=== PATIENT | male | born 1975 | race Caucasian/White ===

== ENCOUNTER 2018-04-23 07:17 | Observation (INO) | payer BC ==
[~2018-04-23] VITALS: Ht 182.9 cm; Wt 85.0 kg
[2018-04-23] VITALS (11 sets, daily range): BP systolic 94–110; BP diastolic 50–68; PULSE 49–71; RESP 15–20; TEMP 97.2–98.5; O2SAT 98–100
[2018-04-23] MEDS ORDERED: ASPIRIN 325 MG TAB PO ONE (07:45)
[2018-04-23] MEDS ORDERED: SODIUM CHLORIDE 0.9% FLUSH 10 ML FLUSH IVF PRN (07:45)
--- NOTE | 2018-04-23 07:46 | PD ---
HPI Chief Complaint: Chest Pain Time Seen by Provider: 07:32 Travel History International Travel<30 days: No Contact w/Intl Traveler<30days: No Traveled to known affect area: No History of Present Illness HPI Patient presents to the emergency department with chest pain. Chest pains described as being intermittent, lasting approximately 1 week, left arm is numb this morning, no chest pain now. Pain is described as being sternal and left- sided, stabbing and dull, he had a heart attack in September and states that the pain started this way, nonradiating, intermittent, 5 minutes in duration, aggravated by standing up and alleviated with rest. He has had shortness of breath with the chest pain, chills but no fever, no sweating, no lower extremity edema, no recent travel, no back pain, no hematuria, resolved right sided abdominal pain. PFSH Past Medical History Hx Anticoagulant Therapy: Yes Cardiovascular Problems: Yes Social History Alcohol Use: Yes (rarely) Tobacco Use: Yes (2PPD) Substance Use: No Allergies-Medications (Allergen,Severity, Reaction): Coded Allergies: No Known Allergies (Verified Allergy, Unknown, 04/23/18) Reported Meds & Prescriptions Reported Meds & Active Scripts Active No Active Prescriptions or Reported Medications Review of Systems Except as stated in HPI: all other systems reviewed are Neg Physical Exam Narrative GENERAL: No acute distress. SKIN: Focused skin assessment warm/dry. HEAD: Atraumatic. Normocephalic. EYES: Ocular muscles intact bilaterally. No scleral icterus. No injection or drainage. ENT: No nasal bleeding or discharge. Mucous membranes pink and moist. NECK: Trachea midline. No JVD. CARDIOVASCULAR: Regular rate and rhythm. No murmur appreciated. Left chest wall tender to palpation. RESPIRATORY: No accessory muscle use. Clear to auscultation. Breath sounds equal bilaterally. GASTROINTESTINAL: Abdomen soft, non-tender, nondistended. Hepatic and splenic margins not palpable. MUSCULOSKELETAL: No obvious deformities. No clubbing. No cyanosis. No edema. NEUROLOGICAL: Awake and alert. No obvious cranial nerve deficits. Motor grossly within normal limits. Normal speech. PSYCHIATRIC: Appropriate mood and affect; insight and judgment normal. Data Data Last Documented VS Vital Signs Date Time Temp Pulse Resp B/P (MAP) Pulse Ox O2 Delivery O2 Flow Rate FiO2 04/23/18 07:50 64 20 110/68 (82) 100 Room Air 04/23/18 07:19 97.2 Orders Orders Electrocardiogram (04/23/18 07:39) B-Type Natriuretic Peptide (04/23/18 07:39) Ckmb (Isoenzyme) Profile (04/23/18 07:39) Complete Blood Count With Diff (04/23/18 07:39) Comprehensive Metabolic Panel (04/23/18 07:39) Magnesium (Mg) (04/23/18 07:39) Prothrombin Time / Inr (Pt) (04/23/18 07:39) Act Partial Throm Time (Ptt) (04/23/18 07:39) Troponin I (04/23/18 07:39) Chest, Single Ap (04/23/18 07:39) Aspirin (Aspirin) (04/23/18 07:45) Sodium Chloride 0.9% Flush (Ns Flush) (04/23/18 07:45) Potassium Chloride (Kcl) (04/23/18 09:00) Admit Order (Ed Use Only) (04/23/18 09:02) Labs Laboratory Tests Test 04/23/18 07:50 White Blood Count 8.5 TH/MM3 Red Blood Count 4.62 MIL/MM3 Hemoglobin 14.6 GM/DL Hematocrit 42.4 % Mean Corpuscular Volume 91.9 FL Mean Corpuscular Hemoglobin 31.5 PG Mean Corpuscular Hemoglobin Concent 34.3 % Red Cell Distribution Width 14.0 % Platelet Count 216 TH/MM3 Mean Platelet Volume 8.1 FL Neutrophils (%) (Auto) 62.9 % Lymphocytes (%) (Auto) 25.4 % Monocytes (%) (Auto) 8.8 % Eosinophils (%) (Auto) 2.2 % Basophils (%) (Auto) 0.7 % Neutrophils # (Auto) 5.3 TH/MM3 Lymphocytes # (Auto) 2.2 TH/MM3 Monocytes # (Auto) 0.7 TH/MM3 Eosinophils # (Auto) 0.2 TH/MM3 Basophils # (Auto) 0.1 TH/MM3 CBC Comment DIFF FINAL Differential Comment Blood Urea Nitrogen 9 MG/DL Creatinine 1.12 MG/DL Random Glucose 90 MG/DL Total Protein 7.0 GM/DL Albumin 4.1 GM/DL Calcium Level 8.6 MG/DL Magnesium Level 1.9 MG/DL Alkaline Phosphatase 77 U/L Aspartate Amino Transf (AST/SGOT) 8 U/L Alanine Aminotransferase (ALT/SGPT) 15 U/L Total Bilirubin 0.5 MG/DL Sodium Level 140 MEQ/L Potassium Level 3.3 MEQ/L Chloride Level 108 MEQ/L Carbon Dioxide Level 23.4 MEQ/L Anion Gap 9 MEQ/L Estimat Glomerular Filtration Rate 72 ML/MIN Total Creatine Kinase 51 U/L Troponin I LESS THAN 0.02 NG/ML B-Type Natriuretic Peptide 65 PG/ML MDM Medical Decision Making Medical Screen Exam Complete: Yes Emergency Medical Condition: Yes Interpretation(s) ECG: Sinus bradycardia at 55, normal intervals with QTC 414, normal axis, T- wave inversion in leads 2/3/aVF Labs: Slight decrease in potassium Last Impressions Chest X-Ray 04/23/18 0739 Signed Impressions: CONCLUSION: Negative for acute process Differential Diagnosis ACS, costochondritis, PE, pulmonary edema, pleural effusion Narrative Course Patient with a known cardiac history presents to the emergency department complaining of chest pain 1 week. Patient placed on a night monitor, IV access obtained, and EKG/chest x-ray/labs/aspirin 325 mg p.o. ordered. 1009: admit for chest pain obs Diagnosis Primary Impression: Chest pain Qualified Codes: R07.9 - Chest pain, unspecified Additional Impression: Hypokalemia Admitting Information Admitting Physician Requests: Observation Scripts No Active Prescriptions or Reported Meds Condition: Stable Lenora Leger MD Apr 23, 2018 07:46
[2018-04-23 08:15] LABS: AUTOMATED NEUTROPHIL # 5.3 TH/MM3 (1.8-7.7); BASOPHIL # 0.1 TH/MM3 (0-0.2); BASOPHIL % 0.7 % (0.0-2.0); EOSINOPHIL # 0.2 TH/MM3 (0-0.4); EOSINOPHIL % 2.2 % (0.0-4.0); HEMATOCRIT 42.4 % (39.0-51.0); HEMOGLOBIN 14.6 GM/DL (13.0-17.0); LYMPH % 25.4 % (9.0-44.0); LYMPHOCYTE # 2.2 TH/MM3 (1.0-4.8); MEAN CELL VOLUME 91.9 FL (80.0-100.0); MEAN CORPUSCULAR HEMOGLOBIN 31.5 PG (27.0-34.0); MEAN CORPUSCULAR HGB CONC 34.3 % (32.0-36.0); MEAN PLATELET VOLUME 8.1 FL (7.0-11.0); MONO % 8.8 % (0.0-8.0); MONOCYTE # 0.7 TH/MM3 (0-0.9); NEUT % 62.9 % (16.0-70.0); PLATELET COUNT 216 TH/MM3 (150-450); RED BLOOD COUNT 4.62 MIL/MM3 (4.50-5.90); WHITE BLOOD COUNT 8.5 TH/MM3 (4.0-11.0)
--- NOTE | 2018-04-23 08:16 | RADRPT ---
EXAM DATE: 04/23/2018 8:04 AM EDT AGE/SEX: 42 years / Male INDICATIONS: Chest pain and left arm numbness and tingling. CLINICAL DATA: This is the patient's initial encounter. Patient reports that signs and symptoms have been present for 3 days and indicates a pain score of 8/10. MEDICAL/SURGICAL HISTORY: . Myocardial infarction. Leaky heart valve. . Heart stents. [place] [facility] [place]. . FINDINGS: A single AP view of the chest demonstrates the lungs to be symmetrically aerated without evidence of mass, infiltrate or effusion. The cardiomediastinal contours are unremarkable. Osseous structures a re intact. CONCLUSION: Negative for acute process Electronically signed by: Arnav Aguirre MD 04/23/2018 8:14 AM EDT
[2018-04-23 08:26] LABS: ALBUMIN 4.1 GM/DL (3.4-5.0); AST (GOT) 8 U/L (15-37); BICARBONATE 23.4 MEQ/L (21.0-32.0); BLOOD UREA NITROGEN 9 MG/DL (7-18); CALCIUM 8.6 MG/DL (8.5-10.1); CHLORIDE 108 MEQ/L (98-107); GLUCOSE,RANDOM 90 MG/DL (74-106); MAGNESIUM 1.9 MG/DL (1.5-2.5); SODIUM (NA) 140 MEQ/L (136-145)
[2018-04-23 08:31] LABS: ALKALINE PHOSPHATASE 77 U/L (45-117); ALT (GPT) 15 U/L (12-78); CREATININE 1.12 MG/DL (0.60-1.30); GLOMERULAR FILTRATION RATE 72 ML/MIN (>89); TOTAL BILIRUBIN ADULT 0.5 MG/DL (0.2-1.0); TROPONIN I LESS THAN 0.02 NG/ML (0.02-0.05)
[2018-04-23] MEDS ORDERED: POTASSIUM CHLORIDE 20 MEQ CONTROLLED RELEASE TAB PO ONE (09:00)
[2018-04-23] MEDS ORDERED: ONDANSETRON ODT 4 MG TAB PO PRN (10:00)
[2018-04-23] MEDS ORDERED: NITROGLYCERIN 0.4 MG SL 25 TABS/BTL SL PRN (10:00)
[2018-04-23] MEDS ORDERED: ACETAMINOPHEN 500 MG CPLT PO PRN (10:00)
[2018-04-23 10:07] LABS: PROTHROMBIN TIME - PATIENT 9.8 SEC (9.8-11.6)
[2018-04-23] MEDS ORDERED: BRIL90TA PO (10:18)
[2018-04-23] MEDS ORDERED: LISI10TA3 PO (10:18)
--- NOTE | 2018-04-23 10:33 | HHI.HP ---
HPI Primary Care Physician PCP [facility] Chief Complaint Chest pain History of Present Illness 42-year-old male with history of coronary artery disease, x cardiac stents and current smoker presents to emergency room for further evaluation of chest pain. Onset this am upon awakening. Left anterior chest characterized as a dull pain. Location left inframammary area. Characterized as a sharp pain. Associated symptoms included dyspnea. Denies nausea, vomiting, or diaphoresis. No no precipitating or relieving factors. Left arm felt numb during episode. Duration lasted minutes. Increased fatigue for the last 3 days. Symptoms remind him prior to MRI September 2017. No current chest discomfort. Review of Systems General: No fatigue, weakness, fever, chills, or recent illness. Has been in his general state of health. HEENT: No LANDON, no vision changes, no nasal congestion or drainage, no dysphasia CV: As stated above. No current chest pain or pressure. Endorses compliance with cardiac medications, never started a statin or beta-drew therapy. RESP: No SOB, cough, wheeze, recurrent URI. GI: No nausea, vomiting, or bowel changes. : No dysuria, urgency, frequency EXT: No lower leg edema, no paraesthesias MS: No discomfort, injury, or change in ROM NEURO: No change in memory, dizziness, difficulty with balance, LOC, or motor/ sensory deficits PSYCH: No anxiety, depression, or suicidal ideation SKIN: No rashes, no concerning lesions Past Family Social History Allergies: Coded Allergies: No Known Allergies (Verified Allergy, Unknown, 04/23/18) Past Medical History Coronary artery disease, 2 cardiac stents, current smoker Reported Medications Reported Meds & Active Scripts Active Reported Lisinopril 10 Mg Tab 10 Mg PO DAILY Brilinta (Ticagrelor) 90 Mg Tab 90 Mg PO BID Active Ordered Medications Current Medications Medications (Trade) Dose Ordered Sig/Liliana Route Start Time Stop Time Status Last Admin (NS Flush) 2 ml UNSCH PRN IVF 04/23/18 07:45 (NS Flush) 2 ml BID IV FLUSH 04/23/18 21:00 (Tylenol) 500 mg Q4H PRN PO 04/23/18 10:00 (Nitrostat Sl) 0.4 mg Q5M PRN SL 04/23/18 10:00 (Aspirin) 325 mg DAILY PO 04/24/18 09:00 (Zofran Odt) 4 mg Q6H PRN PO 04/23/18 10:00 Family History Positive for early onset cardiovascular disease, states all males in his family before age 50 from MIs. Social History Known coronary artery disease. No known hypertension or diabetes. Denies ever being started on statin therapy. Lifelong to pack/daily smoker, since heart attack with decreased smoking to 1 pack daily. Endorses rare alcohol use. Denies any illegal drug use. 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 September 2017. Reports EF of 20%. 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 Physical Exam Vital Signs Vital Signs Date Time Temp Pulse Resp B/P (MAP) Pulse Ox O2 Delivery O2 Flow Rate FiO2 04/23/18 10:31 58 18 102/58 (73) 98 04/23/18 09:26 60 18 98/64 (75) 100 Room Air 04/23/18 07:50 64 20 110/68 (82) 100 Room Air 04/23/18 07:19 97.2 65 20 100 Physical Exam GENERAL: Alert WN, WD, NAD, pleasant, male who appears older than stated age HEAD: NC, AT EYES: Sclera clear, conjunctiva without injection, pupils equal and round ENT: Mucous membranes pink and moist, no nasal discharge or bleeding, poor dentition NECK: Supple, no masses, trachea midline CV: RRR, without murmur, rub, gallop, no JVD, S1-S2 no S3-S4. Chest wall nontender with palpation. RESP: Diminished lungs throughout bilateral, no crackles, wheeze, rhonchi, symmetrical chest rise, nonlabored, able to speak in full sentences ABD: Soft, NT, ND, no masses, positive bowel tones EXT: Pulses +2x4, no dependent edema MS: Normal tone x4 extremities, nontender, no obvious deformities, full range of motion NEURO: CN II through CN XII grossly intact, motor strength 5/5 PSYCH: A+O x3, pleasant affect, appropriate speech, mood, insight and judgment SKIN: Normal turgor, normal texture, no lesions, no rashes, brisk cap refill, even hair distribution Laboratory Laboratory Tests Test 04/23/18 07:50 04/23/18 09:20 White Blood Count 8.5 Red Blood Count 4.62 Hemoglobin 14.6 Hematocrit 42.4 Mean Corpuscular Volume 91.9 Mean Corpuscular Hemoglobin 31.5 Mean Corpuscular Hemoglobin Concent 34.3 Red Cell Distribution Width 14.0 Platelet Count 216 Mean Platelet Volume 8.1 Neutrophils (%) (Auto) 62.9 Lymphocytes (%) (Auto) 25.4 Monocytes (%) (Auto) 8.8 Eosinophils (%) (Auto) 2.2 Basophils (%) (Auto) 0.7 Neutrophils # (Auto) 5.3 Lymphocytes # (Auto) 2.2 Monocytes # (Auto) 0.7 Eosinophils # (Auto) 0.2 Basophils # (Auto) 0.1 CBC Comment DIFF FINAL Differential Comment Blood Urea Nitrogen 9 Creatinine 1.12 Random Glucose 90 Total Protein 7.0 Albumin 4.1 Calcium Level 8.6 Magnesium Level 1.9 Alkaline Phosphatase 77 Aspartate Amino Transf (AST/SGOT) 8 Alanine Aminotransferase (ALT/SGPT) 15 Total Bilirubin 0.5 Sodium Level 140 Potassium Level 3.3 Chloride Level 108 Carbon Dioxide Level 23.4 Anion Gap 9 Estimat Glomerular Filtration Rate 72 Total Creatine Kinase 51 Troponin I LESS THAN 0.02 B-Type Natriuretic Peptide 65 Prothrombin Time 9.8 Prothromb Time International Ratio 1.0 Activated Partial Thromboplast Time 23.9 Result Diagram: 04/23/18 0750 04/23/18 0750 Imaging Last 48 hours Impressions Chest X-Ray 04/23/18 7326 Signed Impressions: CONCLUSION: Negative for acute process Course EKG Normal sinus bradycardia, T-wave inversions inferiorly Caprini VTE Risk Assessment Caprini VTE Risk Assessment: No/Low Risk (score <= 1) Caprini Risk Assessment Model Point Value = 1 Point Value = 2 Point Value = 3 Point Value = 5 Age 41-60 Minor surgery BMI > 25 kg/m2 Swollen legs Varicose veins or History of unexplained or recurrent spontaneous Oral contraceptives or hormone replacement Sepsis (< 1 month) Serious lung disease, including pneumonia (< 1 month) Abnormal pulmonary function Acute myocardial infarction Congestive heart failure (< 1 month) History of inflammatory bowel disease Medical patient at bed rest Age 61-74 Arthroscopic surgery Major open surgery (> 45 min) Laparoscopic surgery (> 45 min) Malignancy Confined to bed (> 72 hours) Immobilizing plaster cast Central venous access Age >= 75 History of VTE Family history of VTE Factor V Leiden Prothrombin [id number] Lupus anticoagulant Anticardiolipin antibodies Elevated serum homocysteine Heparin-induced thrombocytopenia Other congenital or acquired thrombophilia Stroke (< 1 month) Elective arthroplasty Hip, pelvis, or leg fracture Acute spinal cord injury (< 1 month) Prophylaxis Regimen Total Risk Factor Score Risk Level Prophylaxis Regimen 0-1 Low Early ambulation 2 Moderate Order ONE of the following: *Sequential Compression Device (SCD) *Heparin 5000 units SQ BID 3-4 Higher Order ONE of the following medications: *Heparin 5000 units SQ TID *Enoxaparin/Lovenox 40 mg SQ daily (WT < 150 kg, CrCl > 30 mL/min) *Enoxaparin/Lovenox 30 mg SQ daily (WT < 150 kg, CrCl > 10-29 mL/min) *Enoxaparin/Lovenox 30 mg SQ BID (WT < 150 kg, CrCl > 30 mL/min) AND/OR *Sequential Compression Device (SCD) 5 or more Highest Order ONE of the following medications: *Heparin 5000 units SQ TID (Preferred with Epidurals) *Enoxaparin/Lovenox 40 mg SQ daily (WT < 150 kg, CrCl > 30 mL/min) *Enoxaparin/Lovenox 30 mg SQ daily (WT < 150 kg, CrCl > 10-29 mL/min) *Enoxaparin/Lovenox 30 mg SQ BID (WT < 150 kg, CrCl > 30 mL/min) AND *Sequential Compression Device (SCD) Assessment and Plan Assessment and Plan #1 Chest pain-admitted to chest pain center. Rule out ACS with 3 sets of EKGs and cardiac enzymes. No previous EKG to compare T-wave inversions inferiorly and anterolaterally. Monitor telemetry overnight. If rules out exercise stress test in a.m. Obtain fasting lipid panel. Discussed importance of statin therapy with no coronary artery disease. Plans to start low-dose atorvastatin prior to discharge. Obtain medical records from recent cardiac catheterization with intervention September 2017. Discussed plan of care with RN. #2 Reduced EF per report-continue MORGAN inhibitor, patient bradycardic, suspect this is reason he is not on beta drew therapy. Karishma Hammond Apr 23, 2018 10:33
[2018-04-23 11:32] LABS: CHOLESTEROL/ HDL RATIO 5.29 RATIO; HDL CHOLESTEROL 33.4 MG/DL (40.0-60.0)
[2018-04-23] MEDS: ATORVASTATIN 10 MG TAB PO SCH (11:45)
[2018-04-23 12:19] LABS: TROPONIN I LESS THAN 0.02 NG/ML (0.02-0.05)
[2018-04-23 15:00] LABS: TROPONIN I LESS THAN 0.02 NG/ML (0.02-0.05)
[2018-04-23] MEDS ORDERED: TICAGRELOR 90 MG TAB PO SCH (21:30)
[2018-04-23] MEDS: SODIUM CHLORIDE 0.9% FLUSH 10 ML FLUSH IV FLUSH SCH (21:44)
--- NOTE | 2018-04-23 22:56 | EKG ---
Date Performed: 04/23/2018 Time Performed: 07:36:27 PTAGE: 42 years EKG: SINUS BRADYCARDIA WITH SINUS ARRHYTHMIA INFERIOR MYOCARDIAL INFARCTION ABNORMAL ECG NO PREVIOUS TRACING DOCTOR: Philip Argueta Interpretating Date/Time 04/23/2018 22:52:22
[2018-04-24 03:30] VITALS: PULSE 41
[2018-04-24 03:58] VITALS: BP 101/56; PULSE 42; RESP 16; TEMP 98.2; O2SAT 99
[2018-04-24 07:26] VITALS: PULSE 46
[2018-04-24 08:24] VITALS: BP 118/60; PULSE 53; RESP 18; TEMP 97.7; O2SAT 100
[2018-04-24] MEDS ORDERED: LISINOPRIL 10 MG TAB PO SCH (09:00)
[2018-04-24] MEDS ORDERED: ASPIRIN 325 MG TAB PO SCH (09:00)
[2018-04-24] MEDS: ATORVASTATIN 10 MG TAB PO SCH (09:05)
[2018-04-24] MEDS: SODIUM CHLORIDE 0.9% FLUSH 10 ML FLUSH IV FLUSH SCH (09:06)
--- NOTE | 2018-04-24 09:16 | EKG ---
Date Performed: 04/23/2018 Time Performed: 11:40:57 PTAGE: 42 years EKG: SINUS BRADYCARDIA WITH OCCASIONAL VENTRICULAR PREMATURE COMPLEXES INFERIOR MYOCARDIAL INFAR CTION ABNORMAL ECG Since PREVIOUS TRACING , no significant change noted DOCTOR: Brandie Booker Interpretating Date/Time 04/24/2018 09:15:05
--- NOTE | 2018-04-24 09:17 | EKG ---
Date Performed: 04/23/2018 Time Performed: 14:29:37 PTAGE: 42 years EKG: SINUS BRADYCARDIA INFERIOR MYOCARDIAL INFARCTION ABNORMAL ECG Since PREVIOUS TRACING , no significant change noted PREVIOUS TRACIN04/23/2018 07.36 DOCTOR: Brandie Booker Interpretating Date/Time 04/24/2018 09:16:08
--- NOTE | 2018-04-24 09:39 | PD.CARD.PN ---
Objective Medications Current Medications Medications (Trade) Dose Ordered Sig/Liliana Route Start Time Stop Time Status Last Admin (NS Flush) 2 ml UNSCH PRN IVF 04/23/18 07:45 (NS Flush) 2 ml BID IV FLUSH 04/23/18 21:00 04/24/18 09:06 (Tylenol) 500 mg Q4H PRN PO 04/23/18 10:00 (Nitrostat Sl) 0.4 mg Q5M PRN SL 04/23/18 10:00 (Aspirin) 325 mg DAILY PO 04/24/18 09:00 04/24/18 09:05 (Zofran Odt) 4 mg Q6H PRN PO 04/23/18 10:00 (Lipitor) 10 mg DAILY PO 04/23/18 11:45 04/24/18 09:05 (Brilinta) 90 mg BID PO 04/23/18 21:30 Future Hold 04/23/18 21:44 (Prinivil) 10 mg DAILY PO 04/24/18 09:00 04/24/18 09:05 Vital Signs / I&O Vital Signs Date Time Temp Pulse Resp B/P (MAP) Pulse Ox O2 Delivery O2 Flow Rate FiO2 04/24/18 08:24 97.7 53 18 118/60 (79) 100 04/24/18 07:26 46 04/24/18 03:58 98.2 42 16 101/56 (71) 99 04/24/18 03:30 41 04/23/18 23:19 98.5 49 16 94/50 (65) 99 04/23/18 20:00 99 04/23/18 19:56 51 16 106/62 (77) 99 04/23/18 18:31 98.0 54 18 103/58 (73) 99 04/23/18 15:28 71 04/23/18 12:50 52 04/23/18 11:56 98.0 52 15 100/63 (75) 98 04/23/18 10:31 58 18 102/58 (73) 98 Laboratory Laboratory Tests Test 04/23/18 11:20 04/23/18 14:15 Total Creatine Kinase 50 U/L 28 U/L Troponin I LESS THAN 0.02 NG/ML LESS THAN 0.02 NG/ML Assessment and Plan Assessment and Plan #1 Chest pain-admitted to chest pain center. Rule out ACS with 3 sets of EKGs and cardiac enzymes. No previous EKG to compare T-wave inversions inferiorly and anterolaterally. Monitor telemetry overnight. If rules out exercise stress test in a.m. Obtain fasting lipid panel. Discussed importance of statin therapy with no coronary artery disease. Plans to start low-dose atorvastatin prior to discharge. Obtain medical records from recent cardiac catheterization with intervention September 2017. Discussed plan of care with RN. #2 Reduced EF per report-continue MORGAN inhibitor, patient bradycardic, suspect this is reason he is not on beta drew therapy. Call out to Karishma Snell Apr 24, 2018 09:38
[2018-04-24 12:11] VITALS: BP 100/58; PULSE 48; RESP 18; TEMP 97.5; O2SAT 98
--- NOTE | 2018-04-24 12:12 | PD.CARD.PN ---
Subjective Subjective Remarks "Few" substernal chest pain episodes overnight. Described as dull. No radiation. No associated symptoms. No known precipitating or relieving factors. Mild in severity. Objective Medications Current Medications Medications (Trade) Dose Ordered Sig/Liliana Route Start Time Stop Time Status Last Admin (NS Flush) 2 ml UNSCH PRN IVF 04/23/18 07:45 (NS Flush) 2 ml BID IV FLUSH 04/23/18 21:00 04/24/18 09:06 (Tylenol) 500 mg Q4H PRN PO 04/23/18 10:00 (Nitrostat Sl) 0.4 mg Q5M PRN SL 04/23/18 10:00 (Aspirin) 325 mg DAILY PO 04/24/18 09:00 04/24/18 09:05 (Zofran Odt) 4 mg Q6H PRN PO 04/23/18 10:00 (Lipitor) 10 mg DAILY PO 04/23/18 11:45 04/24/18 09:05 (Brilinta) 90 mg BID PO 04/23/18 21:30 Future Hold 04/23/18 21:44 (Prinivil) 10 mg DAILY PO 04/24/18 09:00 04/24/18 09:05 Vital Signs / I&O Vital Signs Date Time Temp Pulse Resp B/P (MAP) Pulse Ox O2 Delivery O2 Flow Rate FiO2 04/24/18 08:24 97.7 53 18 118/60 (79) 100 04/24/18 07:26 46 04/24/18 03:58 98.2 42 16 101/56 (71) 99 04/24/18 03:30 41 04/23/18 23:19 98.5 49 16 94/50 (65) 99 04/23/18 20:00 99 04/23/18 19:56 51 16 106/62 (77) 99 04/23/18 18:31 98.0 54 18 103/58 (73) 99 04/23/18 15:28 71 04/23/18 12:50 52 Physical Exam GENERAL: Alert WN, WD, NAD, pleasant, male HEAD: NC, AT CV: RRR, without murmur, rub, gallop, no JVD, no S3-S4. RESP: Clear lungs throughout bilateral, no crackles, wheeze, rhonchi, symmetrical chest rise, nonlabored, able to speak in full sentences MS: Normal tone x4 extremities,full range of motion PSYCH: A+O x3, pleasant affect, appropriate speech, mood, insight and judgment SKIN: Normal turgor, normal texture Laboratory Laboratory Tests Test 04/23/18 14:15 Total Creatine Kinase 28 U/L Troponin I LESS THAN 0.02 NG/ML Assessment and Plan Assessment and Plan #1 Chest pain-admitted to chest pain center. Ruled out ACS with 3 sets of EKGs and cardiac enzymes. Proceed with chemical cardiac testing. When discussed with patient he reported he recently had a chemical test in January after a second cardiac catheterization. This information was not forthcoming yesterday , therefore called patient's face burler Dr. Corrales to obtain further information. Spoke with Dr. Corrales, face burler in [facility], at 0930. Dr. Corrales states patient was a NSTEMI September 2017. PCI to RCA. OM 90- 95% Mid LAD lesion 40-45%. x2 stents placed in RCA. Patient developed chest pain December 2017, seen and evaluated at [facility]. Cardiac catheterization completed. Dr. Corrales reported cardiac catheterization completed in [facility] suggested a OM 3 50-60% blockage. Since this varied from cardiac catheterization in September, nuclear stress test completed January 2018. Chemical testing conclusion old infarct, no new perfusion deficits, EF 36%. Called Dr. Giles to discuss case. Will proceed with lexiscan and attempt to obtain medical records from [facility]. Karishma Hammond Apr 24, 2018 12:12
[2018-04-24] MEDS ORDERED: REGADENOSON INJ 0.4 MG/5 ML SYR ONE (13:41)
--- NOTE | 2018-04-24 15:33 | RADRPT ---
EXAM DATE: 04/24/2018 3:25 PM EDT AGE/SEX: 42 years / Male INDICATIONS:Angina. Myocardial infarction Chest pain. CLINICAL DATA: This is the patient's initial encounter. Patient reports that signs and symptoms have been present for 1 day and indicates a pain score of 5/10. MEDICAL/SURGICAL HISTORY: Hypertension. Coronary artery stent. COMPARISON: No prior exams available for comparison. DOSE: 8.5 mCi Tc 99m Myoview at rest 25.4 mCi [id number] at stress 0.4 mg Lexiscan STRESS SYMPTOMS: Dyspnea. EJECTION FRACTION: 48 % TECHNIQUE: The patient underwent pharmacologic stress with infusion of prescribed dose. Continuous ECG tracing was monitored during stress. Gated SPECT imaging was performed after stress and conventi onal SPECT imaging was performed at rest. The examination was performed on a SPECT/CT scanner, both attenuation and non-corrected datasets were reviewed. FINDINGS: Distribution: The maximum perfused segment at stress is in the anterior wall. Perfusion Study: The pattern of perfusion at stress is within normal limits. Gated Study: Mild global hypokinesis. The left ventricle appears to be dilated. The ejection fracti on is calculated at 48%. RISK CATEGORY: Low (<1% Annual Motality Rate) CONCLUSION: 1. No definite ischemic myocardial changes are demonstrated. 2. Mild global hypokinesis. 3. The left ventricle appears to be dilated. Electronically signed by: Robert Centeno MD 04/24/2018 3:32 PM EDT
[2018-04-24] MEDS ORDERED: LIPI10TA PO (15:37)
--- NOTE | 2018-04-24 15:38 | HHI.DCPOC ---
Discharge Care Plan Diagnosis: (1) Chest pain in adult (2) Hx of coronary artery disease (3) Tobacco abuse Goals to Promote Your Health * To prevent worsening of your condition and complications * To maintain your health at the optimal level Directions to Meet Your Goals Take your medications as prescribed Follow your dietary instruction Follow activity as directed Keep your appointments as scheduled Take your immunizations and boosters as scheduled If your symptoms worsen call your PCP, if no PCP go to Urgent Care Center or Emergency Room Smoking is Dangerous to Your Health. Avoid second hand smoke Call the 24-hour hour crisis hotline for domestic abuse at Karishma Hammond Apr 24, 2018 15:37
--- NOTE | 2018-04-25 14:20 | TR ---
Date Performed: 04/24/2018 Time Performed: 13:48:08 DOCTOR: Salinas Giles DRUG LIST: CLINICAL HISTORY: REASON FOR TEST: REASON FOR ENDING: OBSERVATION: CONCLUSION: COMMENTS: Lexiscan stress test was performed under standard four minute protocol. Radionuclide was injected one minute prior to ending the test. No electrocardiographic abormalities were present t o suggest ischemia. Nuclear imaging and interpretation are pending.
== END 2018-04-24 16:32 | disposition home or self-care (01) ==
LOC: NEPE 07:17 → NEDA 09:03 → NEPGCP 10:32
PROVIDERS: ADMIT Internal Medicine Cardiovascular Disease; ATTEND Internal Medicine Cardiovascular Disease
DX: R07.9 Chest pain, unspecified (principal); E87.6 Hypokalemia; Z95.5 Presence of coronary angioplasty implant and graft; I25.10 Atherosclerotic heart disease of native coronary artery without angina pectoris; F17.210 Nicotine dependence, cigarettes, uncomplicated; R20.0 Anesthesia of skin; I25.2 Old myocardial infarction; R68.83 Chills (without fever); R10.9 Unspecified abdominal pain; R06.02 Shortness of breath; Z79.01 Long term (current) use of anticoagulants; R00.1 Bradycardia, unspecified; Z79.899 Other long term (current) drug therapy; Z82.49 Family history of ischemic heart disease and other diseases of the circulatory system; Z95.820 Peripheral vascular angioplasty status with implants and grafts; R20.2 Paresthesia of skin; I10 Essential (primary) hypertension; R94.31 Abnormal electrocardiogram [ECG] [EKG]
CPT/HCPCS: 71045; 78452; 80053; 80061; 82550; 83735; 83880; 84484; 85025; 85610; 85730; 93005; 93017; 99285; A9502; G0378; J2785